=== PATIENT | female | born 1990 | race Caucasian/White ===

== ENCOUNTER 2019-05-22 19:44 | Emergency (ER) | payer OTHER ==
[~2019-05-22] VITALS: Ht 162.5 cm; Wt 86.2 kg
[~2019-05-22 19:44] MED LIST: AMOXICILLIN500 MG PO; AMOXIL500 MG PO; CIPROFLOXACIN500 MG PO; FLAGYL500 MG PO; MACROBID100 M1 PO; MIRENA52 MG IU; MOTRIN800 MG PO; PYRIDIUM200 MG PO
== END 2019-05-22 21:17 | disposition home or self-care (01) ==
LOC: ED 19:44
DX: S93.601A Unspecified sprain of right foot, initial encounter (principal); S99.911A Unspecified injury of right ankle, initial encounter; Z79.899 Other long term (current) drug therapy; X58.XXXA Exposure to other specified factors, initial encounter; Y93.89 Activity, other specified; Y92.89 Other specified places as the place of occurrence of the external cause; Y99.8 Other external cause status

== ENCOUNTER 2022-01-28 19:27 | Emergency (ER) | payer OTHER ==
[~2022-01-28] VITALS: Ht 162.5 cm; Wt 90.7 kg
[2022-01-28] MEDS ORDERED: CLINDAMYCIN HC300 MG PO (20:41)
== END 2022-01-28 20:57 | disposition home or self-care (01) ==
LOC: ED 19:27
DX: L73.9 Follicular disorder, unspecified (principal)